=== PATIENT | female | born 1940 | race Caucasian/White ===

== ENCOUNTER 2018-10-01 09:48 | Inpatient (IN) ==
--- NOTE | 2018-10-01 10:46 | Diag Imaging Result Doc PS360 ---
CT HEAD W/O CONTRAST - 10/01/2018 INDICATION: stroke like symptoms COMPARISON: 01/01/2014 FINDINGS: There is no intracranial mass or hemorrhage. There is some mild patchy cerebral white matter lucency compatible with chronic microvascular disease. This is grossly stable from prior. The ventricles and sulci are normal. The sinuses are clear. IMPRESSION: No acute process. This exam was performed using automated exposure control, adjustment of mA or kV according to patient size, and/or use of iterative reconstruction technique Electronically signed by Max Panda 10/01/2018 10:44 AM
--- NOTE | 2018-10-01 10:59 | Diag Imaging Result Doc PS360 ---
EXAM: CHEST-PORTABLE INDICATION: stroke like symptoms TECHNIQUE: One view COMPARISON: 08/31/2018 FINDINGS: There is evidence of prior granulomatous disease, stable. The lungs are grossly clear. There is no discrete pleural fluid collection or pneumothorax. The cardiomediastinal silhouette and central vasculature are grossly unremarkable. IMPRESSION: No evidence of acute pathology by plain radiograph. Electronically signed by John Patton 10/01/2018 10:56 AM
[2018-10-01 11:30] LABS: BASO# 0.02 X1000 (0.0-0.2); BASO% 0.2 % (0.0-0.8); EOS# 0.14 X1000 (0.0-0.7); EOS% 1.7 % (0.0-10.0); HEMOGLOBIN 12.9 g/dL (12.0-16.0); IMM GRAN# 0.03 X1000 (0.0-0.04); IMM GRAN% 0.4 % (0.0-0.5); LYMPH# 1.96 X1000 (1.2-3.4); LYMPH% 23.9 % (20.5-51.1); MCH 26.6 PG (27-31); MCHC 32.3 g/dL (33-37); MCV 82.5 FL (81-99); MONO# 0.81 X1000 (0.11-0.59); MONO% 9.9 % (1.7-9.3); MPV 9.2 FL (7.4-10.4); NEUT# 5.23 X1000 (1.4-6.5); NEUT% 63.9 % (42.2-75.2); PLT 257 X1000 (130-400); RBC 4.85 XMIL (4.2-5.4); RDW 14.9 % (11.5-14.5); WBC 8.19 X1000 (4.8-10.8)
[2018-10-01 11:40] LABS: INR 0.87; PROTIME 12.6 Seconds (11.0-16.0)
[2018-10-01 11:41] LABS: PTT 24.8 Seconds (22.3-41.8)
[2018-10-01 11:47] LABS: ALB/GLOB RATIO 1.6; ALBUMIN 4.1 g/dL (3.5-5.0); CALCIUM 9.3 mg/dL (8.8-10.2); CREATININE 1.2 mg/dL (0.5-0.9); TOTAL BILIRUBIN 0.32 mg/dL (0.20-1.00); TOTAL PROTEIN 6.7 g/dL (6.3-8.3)
[2018-10-01] MEDS ORDERED: DIPHTHERIA/TETANUS ADULT IM ONE (12:44)
[2018-10-01] MEDS ORDERED: ZOFRAN IV PRN (16:42)
[2018-10-01] MEDS: NS 1,000 ML IV SCH (17:23)
[2018-10-01 18:41] LABS: URINE SOURCE CATH
[2018-10-01 18:50] LABS: BILIRUBIN URINE NEGATIVE (NEGATIVE); BLOOD URINE NEGATIVE (NEGATIVE); COLOR YELLOW; GLUCOSE URINE NEGATIVE (NEGATIVE); KETONE URINE NEGATIVE (NEGATIVE); LEUKOCYTES URINE NEGATIVE (NEGATIVE); NITRITE URINE NEGATIVE (NEGATIVE); PROTEIN URINE NEGATIVE (NEGATIVE); SP GRAVITY URINE 1.007; TURBIDITY URINE CLEAR (CLEAR); UR EPITHELIAL CELLS <10 /HPF (<10); URINE BACTERIA NEGATIVE /HPF; URINE RBC <10 /HPF (<10); URINE WBC <10 /HPF (<10); UROBILINOGEN URINE NORMAL (NORMAL)
[2018-10-01 19:14] LABS: UR AMPHETAMINES QUAL NONE DETECTED (NONE DETECT); UR BARBITUATES QUAL NONE DETECTED (NONE DETECT); UR BENZODIAZEPIN QUAL NONE DETECTED (NONE DETECT); UR CANNABINOIDS QUAL NONE DETECTED (NONE DETECT); UR COCAINE QUAL NONE DETECTED (NONE DETECT); UR METHADONE QUAL NONE DETECTED (NONE DETECT); UR OPIATES QUAL NONE DETECTED (NONE DETECT); UR OXYCODONE QUAL NONE DETECTED (NONE DETECT); UR PCP QUAL NONE DETECTED (NONE DETECT)
[2018-10-01] MEDS: VENTOLIN HFA INH SCH (19:18)
--- NOTE | 2018-10-01 20:05 | HISTORY AND PHYSICAL ---
PRIMARY CARE PHYSICIAN: Dr. Damon. CHIEF COMPLAINT: Dizziness and a fall, hitting her forehead. Also noted to have weakness in arms and legs and increased confusion. HISTORY OF PRESENTING ILLNESS: This is a 78-year-old female who presents to [facility] after she became dizzy and fell and hit her forehead with a small laceration above her right eyebrow. Family is at bedside and said that she has had increased confusion since Monday. They took her to see her primary care physician this morning and the patient did not recognize him. She has had a history of dementia, some weakness in her arms and legs. WORKUP: We did a CT of the head that showed no acute process. We did a chest x-ray that showed no evidence of acute pathology by plain radiograph. Laboratory data was fairly unremarkable. She did have a bump in her creatinine at 1.2, so she will be admitted for further evaluation and treatment. PAST MEDICAL HISTORY: Dementia, COPD, and right breast cancer. PAST SURGICAL HISTORY: Right mastectomy. FAMILY HISTORY: Reviewed and noncontributory. SOCIAL HISTORY: She currently lives alone. Denies any tobacco, alcohol or illicit drug use. ALLERGIES: To penicillin. HOME MEDICATIONS: We will need to obtain a current list of medications, reconcile, review and restart as appropriate. We will place an order for nursing to update and confirm home medications. LABORATORY DATA: Showed a white blood cell count of 8.19, hemoglobin 12.9, hematocrit 40, platelets 257,000. PT and INR of 12.6 and 0.87. Sodium 143, potassium 4, chloride 102, CO2 30, BUN of 7, creatinine 1.2, glucose 118. Troponin less than 0.010. IMAGING: CT of the head showed no acute process. Chest x-ray showed no evidence of acute pathology by plain radiograph. REVIEW OF SYSTEMS: She denied any fever, chills, blurred vision. She did admit to some dizziness and remembered her fall, but did not remember where it occurred or that she had a laceration to her right eyebrow. She has had increased confusion and weakness in her arms and legs. Denied any chest pain, coughing, shortness of breath. Denied any abdominal pain, constipation, diarrhea, burning or hurting with urination. PHYSICAL EXAMINATION: VITAL SIGNS: On arrival she had a temperature of 98.5 degrees, pulse 70, respirations 18, blood pressure 154/64, saturating 97% on room air. GENERAL: This is a 78-year-old female who is lying in the bed, answers most questions appropriately, but does have some lapse in memory and some confusion noted. HEENT: The patient is noted to have a small laceration above her right eyebrow with a Band-Aid in place. No bleeding or drainage noted at this time, otherwise normocephalic. Oropharynx and nares are clear. EYES: Pupils are equal, round, reactive to light and accommodation. Extraocular movements are intact. NECK: Normal inspection normal range of motion. LUNGS: Clear to auscultation bilaterally with equal lung expansion and chest wall movement. HEART: With regular rate and rhythm. No murmurs, rubs, or gallops. ABDOMEN: Soft, nontender, nondistended. Bowel sounds are present x4 quadrants. MUSCULOSKELETAL: She had 4/5 strength x4 extremities. NEUROLOGICAL: The cranial nerves 2-12 appear grossly intact. ASSESSMENT: 1. Fall with laceration to right eyebrow. 2. A mild acute kidney injury. 3. Dementia. PLAN: She was admitted to the medical unit, placed on telemetry, O2 per protocol. We will do an MRI of the brain with and without contrast and MRI today of the brain without contrast. We will check echocardiogram and a carotid ultrasound bilateral. We will place on sequential compression devices for deep vein thrombosis prophylaxis. We will update and confirm home medications. We will check a CBC, BMP and lipid profile. We will place on a healthy heart diet. We will consult physical therapy and further orders after seen by attending. Dictated by SAWYER Sevilla for Albert Pike MD cc: SAWYER Sevilla MD Dr. Frances
[2018-10-01] MEDS: LIORESAL PO SCH (21:29)
--- NOTE | 2018-10-01 21:31 | HISTORY AND PHYSICAL ---
ADDENDUM: Patient came in for altered mentation. Apparently Monday, she fell and has kind of been more confused since that time. Monday, she was kind of very agitated this morning. She woke up in she was planning to go to her daughter house for her birthday, but that will not happen for another week. The patient does have dementia. She is on Namenda at baseline, but her exam is really nonfocal. There may be just a trace of weakness on the right upper extremity, but besides that, she seems has a nonfocal exam. So at this point her altered mentation is possibly progression of her primary dementia. It certainly could be a cerebrovascular accident with acute changes in vascular dementia. We will rule that out. We need to do an urinalysis so we can get a sample to figure out if she has got an urinary tract infection because it does look like she has some degree of urinary retention and we will continue to monitor. DISPOSITION: Pending her clinical status. This is a [id number] encounter note with Yuliya Marcos. cc: Albert Pike MD
[2018-10-02] MEDS: NS 1,000 ML IV SCH (05:51)
[2018-10-02 07:03] LABS: BASO# 0.02 X1000 (0.0-0.2); BASO% 0.3 % (0.0-0.8); EOS# 0.21 X1000 (0.0-0.7); EOS% 2.9 % (0.0-10.0); HEMOGLOBIN 12.6 g/dL (12.0-16.0); IMM GRAN# 0.02 X1000 (0.0-0.04); IMM GRAN% 0.3 % (0.0-0.5); LYMPH# 1.42 X1000 (1.2-3.4); LYMPH% 19.6 % (20.5-51.1); MCH 26.8 PG (27-31); MCHC 32.3 g/dL (33-37); MCV 82.8 FL (81-99); MONO# 0.61 X1000 (0.11-0.59); MONO% 8.4 % (1.7-9.3); MPV 9.4 FL (7.4-10.4); NEUT# 4.95 X1000 (1.4-6.5); NEUT% 68.5 % (42.2-75.2); PLT 240 X1000 (130-400); RBC 4.71 XMIL (4.2-5.4); RDW 14.8 % (11.5-14.5); WBC 7.23 X1000 (4.8-10.8)
[2018-10-02 07:21] LABS: CALCIUM 8.8 mg/dL (8.8-10.2); CREATININE 1.1 mg/dL (0.5-0.9)
[2018-10-02] MEDS: VENTOLIN HFA INH SCH ×2 (07:55→19:00)
[2018-10-02] MEDS: NAMENDA XR PO SCH (10:10)
[2018-10-02] MEDS: MYRBETRIQ E.R. PO SCH (10:10)
[2018-10-02] MEDS: CELEXA PO SCH (10:10)
[2018-10-02] MEDS: LIORESAL PO SCH ×2 (10:11→20:02)
[2018-10-02] MEDS: SYNTHROID PO SCH (10:11)
--- NOTE | 2018-10-02 13:25 | Diag Imaging Result Doc PS360 ---
MRI BRAIN W/WO CONTRAST - 10/02/2018 INDICATION: stroke COMPARISON: Head CT 10/01/2018 FINDINGS: There is mild diffuse cerebral atrophy. There is no area of restricted diffusion. There is mild to moderate periventricular white matter chronic microvascular disease. No intracranial mass or hemorrhage. No abnormal contrast enhancement. Midline structures including optic chiasm and pituitary are normal. IMPRESSION: Chronic ischemic changes of the brain. No acute process. Electronically signed by Max Panda 10/02/2018 1:23 PM
--- NOTE | 2018-10-02 14:57 | ECHO REPORT ---
ORDER DATE: 10/01/2018 ECHOCARDIOGRAPHIC MEASUREMENTS: 1. Interventricular septum 1.2 2. Left ventricular posterior wall 0.9. 3. Diastolic diameter 4.1. 4. Left atrium 3. 5. Aorta 2.5 cm. SUMMARY OF THE 2-DIMENSIONAL IMAGIN. Technically suboptimal study. Poor acoustic window. 2. Aortic valve leaflets not well visualized. 3. Pulmonic valve not well visualized. 4. Mitral valve was normal. 5. Tricuspid valve was normal. Normal left ventricular cavity size. Estimated ejection fraction of 70%. Mild tricuspid regurgitation. Peak velocity across the tricuspid valve was 2.1 m/sec. 6. Peak velocity across the aortic valve less than 2 m/sec. By Doppler studies, there is no aortic stenosis or regurgitation. There is hyperdynamic circulation. 7. There is mild mitral regurgitation. 8. Mild left ventricular hypertrophy. 9. Peak velocity across the aortic valve was less than 2 m/sec. There is no aortic stenosis. There is mild aortic regurgitation. 10. There is no pericardial effusion or obvious intracardiac mass or thrombus. cc: MD Yuliya Hendrickson CRNP
[2018-10-02 17:49] LABS: ALB/GLOB RATIO 1.3; ALBUMIN 3.9 g/dL (3.5-5.0); CALCIUM 9.1 mg/dL (8.8-10.2); CREATININE 1.2 mg/dL (0.5-0.9); POTASSIUM 3.4 mmol/L (3.5-5.1); TOTAL BILIRUBIN 0.2 mg/dL (0.20-1.00); TOTAL PROTEIN 6.9 g/dL (6.3-8.3)
--- NOTE | 2018-10-02 18:03 | PROGRESS NOTE ---
DATE: 10/02/2018 SUBJECTIVE: The patient has no major complaints. OBJECTIVE: vital signs: Blood pressure 157/83, heart rate 70, respiratory rate 18, temperature 98.2 degrees. Cardiovascular: Regular rate and rhythm. Pulmonary: Bilateral breath sounds. Clear to auscultation. Gastrointestinal: Soft, nontender, nondistended. Bowel sounds are positive. LABORATORY DATA: White count 7, hemoglobin and hematocrit 12 and 39, platelets of 240,000. Creatinine 1.1. LDL was 156. PROBLEM LIST: 1. Transient ischemic attack versus possible cerebrovascular accident. We will continue treatment. MRI was negative. There is no real evidence of worsening function. I am not sure what happened. It certainly could have been transient ischemic attack or just progression of her dementia. Family is concerned that she is unable to get up and around by herself and they feel like she almost fell last night again, but feel her mental status has gone back to baseline. So we will continue to monitor for the time being. 1. Acute kidney injury. We will continue gentle hydration and follow. 2. Dementia. Appears to be relatively well controlled. We may have to make adjustments. We will see how she is doing. cc: Albert Pike MD
[2018-10-02] MEDS: TYLENOL PO PRN (20:02)
[2018-10-03] MEDS: NS 1,000 ML IV SCH (01:16)
[2018-10-03 07:19] LABS: BASO# 0.01 X1000 (0.0-0.2); BASO% 0.1 % (0.0-0.8); EOS# 0.27 X1000 (0.0-0.7); EOS% 3.7 % (0.0-10.0); HEMATOCRIT 40.4 % (37.0-47.0); HEMOGLOBIN 12.9 g/dL (12.0-16.0); IMM GRAN# 0.03 X1000 (0.0-0.04); IMM GRAN% 0.4 % (0.0-0.5); LYMPH# 1.88 X1000 (1.2-3.4); LYMPH% 25.6 % (20.5-51.1); MCH 26.6 PG (27-31); MCHC 31.9 g/dL (33-37); MCV 83.3 FL (81-99); MONO# 0.66 X1000 (0.11-0.59); MPV 9.6 FL (7.4-10.4); NEUT# 4.48 X1000 (1.4-6.5); NEUT% 61.2 % (42.2-75.2); PLT 251 X1000 (130-400); RBC 4.85 XMIL (4.2-5.4); RDW 14.8 % (11.5-14.5); WBC 7.33 X1000 (4.8-10.8)
[2018-10-03] MEDS: VENTOLIN HFA INH SCH ×2 (07:33→19:37)
[2018-10-03 07:48] LABS: TSH 0.58 uIUmL (0.27-4.20)
[2018-10-03] MEDS: MYRBETRIQ E.R. PO SCH (10:07)
[2018-10-03] MEDS: LIORESAL PO SCH ×2 (10:07→21:10)
[2018-10-03] MEDS: ASPIRIN EC PO SCH (10:07)
[2018-10-03] MEDS: SYNTHROID PO SCH (10:07)
[2018-10-03] MEDS: CELEXA PO SCH (10:08)
[2018-10-03] MEDS: NAMENDA XR PO SCH (10:08)
--- NOTE | 2018-10-03 18:41 | PROGRESS NOTE ---
DATE: 10/03/2018 SUBJECTIVE: She has no major complaints. She wants to go home. She does not want to have any issues with her family. OBJECTIVE: Vital Signs: Blood pressure is 136/58, heart rate 70, respiratory rate 20, temperature 98, 98% on room air. Cardiovascular: Regular rate and rhythm. Pulmonary: Bilateral breath sounds. Clear to auscultation. GI: Soft, nontender, nondistended. Bowel sounds are positive. LABORATORY DATA: White count 7, hemoglobin and hematocrit 12 and 40, platelets 251. Basic was normal. PROBLEM LIST: 1. Possible transient ischemic attack versus symptomatic carotid stenosis. Preliminarily, I believe her carotid showed blockage on the left of about 60% to 70%. I think there were some issues there. I am going to get a vascular surgery opinion on that. 2. Dementia. She is pretty well controlled on her current medications. We will continue to monitor. 3. Disposition. I anticipate she may be able to be discharged soon. I am going to check her lipids. We need to probably be a little bit more vigorous in her anti-platelet, although her LDL direct is 156. She needs to be on a decent dose of statin, which she is not, so I am going to start Lipitor 40. She needs to be on at least aspirin and possibly combination anti- platelet therapy, but I will make a note to consult Dr. Malloy for evaluation therein. PLAN: The plan will be to go to rehab tomorrow once she is stabilized. cc: Albert Pike MD
[2018-10-03] MEDS ORDERED: LIPITOR PO SCH (21:00)
[2018-10-03] MEDS: TYLENOL PO PRN (21:12)
--- NOTE | 2018-10-03 21:37 | GENERAL SURGERY CONSULTATION ---
DATE: 10/03/2018 HISTORY OF PRESENT ILLNESS: This is a 78-year-old female with history of dementia but otherwise functioning pretty well. She had a fall at home in the emergency room where she was found to have some abrasions and lacerations and confusion. Her family says this is uncharacteristic even for her baseline dementia. She has had some previous falls in the past, but apparently no witnessed focal neurologic deficits. She was unable recognize people who she knew well. MRI of the brain showed chronic changes as well as CT scan but no acute findings. Carotid ultrasound did demonstrate elevation of velocities in the right internal carotid artery. The formal report is pending. She does take a baby aspirin but does not take any statin medications. Has had no prior CVA and no definitive focal neurologic deficits. MEDICAL HISTORY: Dementia, COPD and a history of right breast carcinoma treated approximately 10 years ago. SURGICAL HISTORY: Right mastectomy. She has also had some orthopedic procedures. SOCIAL HISTORY: She lives alone. No alcohol. No drugs. Her was a heavy smoker, and she does have some secondhand exposure. FAMILY HISTORY: Reviewed and noncontributory. REVIEW OF SYSTEMS: Ten-point negative. No fever. PHYSICAL EXAMINATION: Vital signs: Pulse 78, blood pressure 171/69, oxygen saturation 100%. General: She is alert, elderly appearing but no acute distress. HEENT: No scleral icterus. No cervical mass. Cardiovascular: Normal rate. Pulmonary: No increased work of breathing. Abdomen: Soft, nontender, nondistended. Integument: Warm and dry. Right chest exam shows post mastectomy with no subcutaneous masses. Lymphatic: No cervical, axillary, or inguinal adenopathy. Neurologic: Cranial nerves 2 through 12 are grossly intact. Strength 5/5 in all extremities. Sensation is grossly normal. Psychiatric: Appropriate affect. She does repeat questions at times. LABORATORY DATA: White count is 3, hematocrit is 40. Urinalysis was clear. Her troponins are negative. TSH is 0.58. UDS is clear. IMAGING: I have reviewed her CT scan of the head, her brain MRI, her carotid velocities, although I have not yet seen her duplex images and her echocardiogram report. ASSESSMENT AND PLAN: This is a 78-year-old female with possible transient ischemic attack symptoms, although the symptoms are vague, mostly a small. Elevation of velocities final degree of stenosis is pending at this juncture. I would recommend treating her medically, allow her to recover from this episode. We would recommend initiation of a statin. She is on aspirin and would consider dual antiplatelet therapy. We will follow her along. She may ultimately benefit from endarterectomy, especially if she has recurrent episodes with focal neurologic findings. cc: Gui Malloy MD
[2018-10-04] MEDS: TYLENOL PO PRN (04:54)
[2018-10-04 08:08] VITALS: BP 182/82
[2018-10-04] MEDS: VENTOLIN HFA INH SCH (08:21)
[2018-10-04] MEDS ORDERED: PLAVIX PO SCH (09:00)
[2018-10-04] MEDS: NAMENDA XR PO SCH (09:28)
[2018-10-04] MEDS: ASPIRIN EC PO SCH (09:28)
[2018-10-04] MEDS: MYRBETRIQ E.R. PO SCH (09:28)
[2018-10-04] MEDS: SYNTHROID PO SCH (09:28)
[2018-10-04] MEDS: CELEXA PO SCH (09:29)
[2018-10-04] MEDS: LIORESAL PO SCH (09:29)
--- NOTE | 2018-10-04 09:39 | DISCHARGE SUMMARY ---
ADMISSION DATE: 10/01/2018 DISCHARGE DATE: 10/04/2018 PRIMARY CARE PHYSICIAN: Dr. Roverto Damon. ADMISSION DIAGNOSES: 1. Fall with laceration to right eyebrow. 2. Mild acute kidney injury. 3. Dementia. DISCHARGE DIAGNOSES: 1. Possible transient ischemic attack versus symptomatic carotid stenosis. 2. Dementia. SUMMARY OF FINDINGS: This is a 78-year-old female who presented to the emergency room after she had become dizzy and fell and hit her forehead with a small laceration above her right eyebrow. The family at the bedside said she had increased confusion that began the previous Monday, saw her primary care physician on the morning of arrival, and did not recognize him. Has a history of dementia and some weakness in her arms and legs. Was admitted. We obtained an MRI of the brain that showed chronic ischemic changes of the brain, but no acute process. We did carotid velocities that showed elevation in the right internal carotid artery. Formal report remains pending. We consulted General Surgery, who evaluated and felt the elevation of the velocities final degree was pending, but would recommend treating her medically, allow her to recover from this episode, recommend initiation of statin, which she has been placed on, and on aspirin and Plavix 75 mg p.o. daily. They would follow along. As she had recurrent episodes with focal neurological findings, she may ultimately benefit from an endarterectomy at that time, but it is now felt that she can safely be discharged to rehab. Family did request to see Neurology, and we have set that up for her to be seen prior to being discharged today. DISCHARGE MEDICATIONS: Aspirin 81 mg p.o. daily, ProAir inhalation b.i.d., atorvastatin 40 mg p.o. at bedtime, baclofen 20 mg p.o. b.i.d., citalopram 20 mg p.o. daily, Plavix 75 mg p.o. daily, Synthroid 88 mcg p.o. daily, memantine 28 mg p.o. daily, Myrbetriq 50 mg p.o. daily, Symbicort 80/4.5 inhalation b.i.d., lisinopril 5 mg p.o. daily, Claritin 10 mg p.o. daily. FOLLOWUP: She will follow up with her primary care physician once she has completed her rehab stay. TIME SPENT: A 35-minute discharge. This is SAWYER Fields, dictating for Dr. Pike. Dictated by SAWYER Sevilla for Albert Pike MD cc: SAWYER Sevilla MD David Francis, MD
--- NOTE | 2018-10-04 14:12 | CONSULTATION ---
DATE OF CONSULTATION: 10/04/2018 HISTORY: Ms. Armendariz is 78 years old, and there is reported to be long-standing dementia. History from the patient is considered not completely valid on that basis. Attentive daughter in-law at the bedside and review of the hospital notes provided history. She had been forgetful for at least 3 years, gradually more prominent. She fell and struck her head 3 days ago, and was briefly more confused, but seems back to baseline now. She has been taking memantine for a few years. Exdpjfrl-um-xii does not know all of her medicines in detail, and qjpugbae-fp-[id number] does not know if she had previous cholinesterase inhibitor trial. There is not cholinesterase inhibitor on her home medicine list now. There is no history of other head injury. She has never had clinical stroke. Brain MRI this admission showed nothing remarkable. She has never used ethanol. She has never had seizure or other neurologic event. There is reported family history of dementia in her mother. Workup here includes lab showing some minor findings on chemistry profile but nothing that would be associated with encephalopathy. There is carotid report pending with preliminary report that velocity data is consistent with stenosis on the right. She has been afebrile here. Systolic blood pressures have ranged 130s-180s. There is reported past history of hypertension treated with lisinopril. PHYSICAL EXAMINATION: On exam, Ms. Armendariz is awake, alert, and attentive. She missed the date by just one day, and otherwise was completely oriented to all parameters. Speech is not dysarthric. Language function is intact on bedside testing. She scored 23/30 on cognitive testing. She registered 2 of 3 items consistently. She consistently could recall none of 3 items. She named the president, but could not name the Governor. She reported recent news but could not provide details. She interpreted a simile, but not a metaphor. She made a careless mistake spelling "world" backward. Head and neck are unremarkable. Visual delgadillo are full tested grossly by confrontational finger counting. Extraocular movements are full. Facial motility is little bit diminished bilaterally, but symmetric. Gag is intact. Tongue is midline. She splints the right shoulder. Left shoulder shrug is good. Strength is normal in the arms and legs. Limb tone is symmetric. Plantar response is silent bilaterally. I did not test her gait. She reports good pinprick appreciation over the limbs. Reflexes are trace at the ankles and 1+ at the wrists bilaterally. During interview and examination, she had some fidgeting and squirming involving trunk and all limbs and [id number] reports this has been present for decades. IMPRESSION: 1. Cognitive impairment, probably dementia/major neurocognitive disorder. If she has not had previous cholinesterase inhibitor trial, I would consider that electively, not urgent. I discussed potential adverse cholinergic side effects of cholinesterase inhibitors with the patient and [id number]. 2. Recent fall with head injury. There is not clinical or imaging evidence of intracranial bleeding or brain injury. I encouraged her to be careful with gait and activities. 3. Movement. Features are not typical of chorea and there is not history of dopamine dorothy medication use. This does not need attention now. 4. Question of carotid stenosis. I don't think this is symptomatic. Await full report. I will be glad to see her again if needed. Thanks for asking Neurology to see Ms. Armendariz. cc: MD MYAH iFore III
--- NOTE | 2018-10-05 10:22 | DISCHARGE SUMMARY ---
ADMISSION DATE: 10/01/2018 DISCHARGE DATE: 10/04/2018 Patient came in with a fall, and she was found to have possibly a dementia episode. She also was found to have carotid stenosis. We initiated aspirin and Plavix. On the day of discharge, she is actually doing pretty well. We also started Lipitor. She seems to be doing well. Her LDL is actually somewhat elevated at a level of 156. The patient will be discharged. Follow up with Surgery for evaluation of her carotid stenosis. Dr. Ji was also consulted, and he did recommend Aricept versus Namenda, and either aspirin or Plavix long-term at this point until she gets her vascular surgery. We will continue aspirin and Plavix, and continue to follow. This is a vpxx-ut-dyci encounter note with SAWYER Sevilla. cc: Albert Pike MD
--- NOTE | 2018-10-05 18:36 | Carotid Study ---
DATE: 10/01/2018 REFERRING PHYSICIAN: Shahzad. INTERPRETING PHYSICIAN: Jason. HIDE SPREADER: Nancy. The patient has had a CVA. Imaging is accomplished. Velocities are noted. There is plaque in the right bulb and the proximal left internal carotid. The right internal common carotid artery shows 2.7; left is 0.9. Percent stenosis is 60% to 797% on the right, and 0% to 39% on the left. Plaque disease as noted above. The velocities in the right internal have increased substantially since the study of 01/15/2014, and now represent a stenosis of hemodynamic consequence. There is antegrade vertebral flow bilaterally. cc: MD Yuliya Reyes CRNP
== END 2018-10-04 15:21 | DRG 68 ==
LOC: ED 09:48 → 3N 14:53
PROVIDERS: ATTEND Internal Medicine
CPT/HCPCS: 70450; 70553; 71010; 71045; 80048; 80053; 80061; 80101; 80301; 80307; 80324; 80345; 80346; 80353; 80358; 80361; 80365; 81001; 82607; 82746; 82948; 83721; 83992; 84443; 84484; 85025; 85610; 85730; 86038; 86039; 86140; 86592; 90471; 90714; 93005; 93306; 93880; 94640; 94761; 97162; 97530; 99285; A9270; A9579; G0431; G0434; G0479; G0480; J7030; XXXXX

== ENCOUNTER 2018-11-16 21:20 | Observation (INO) ==
--- NOTE | 2018-11-16 21:49 | EKG Report ---
Test Performed on : 11/16/2018 9:31:42 PM Test Reason : cp Blood Pressure : / mmHG Vent. Rate : 063 BPM Atrial Rate : 063 BPM P-R Int : 172 ms QRS Dur : 078 ms QT Int : 408 ms P-R-T Axes : 049 053 084 degrees QTc Int : 417 ms Normal sinus rhythm. Normal ECG When compared with ECG of 24-OCT-2018 11:11, (Unconfirmed) No significant change was found Unconfirmed Result
[2018-11-16] MEDS ORDERED: ASPIRIN PO ONE (22:17)
[2018-11-16 22:37] LABS: BASO# 0.06 X1000 (0.0-0.2); BASO% 0.6 % (0.0-0.8); EOS# 0.37 X1000 (0.0-0.7); EOS% 3.5 % (0.0-10.0); HEMATOCRIT 38.4 % (37.0-47.0); HEMOGLOBIN 12.6 g/dL (12.0-16.0); IMM GRAN# 0.06 X1000 (0.0-0.04); IMM GRAN% 0.6 % (0.0-0.5); LYMPH# 2.33 X1000 (1.2-3.4); LYMPH% 22.3 % (20.5-51.1); MCH 26.9 PG (27-31); MCHC 32.8 g/dL (33-37); MCV 82.1 FL (81-99); MONO# 1.48 X1000 (0.11-0.59); MONO% 14.1 % (1.7-9.3); MPV 8.8 FL (7.4-10.4); NEUT# 6.16 X1000 (1.4-6.5); NEUT% 58.9 % (42.2-75.2); PLT 329 X1000 (130-400); RBC 4.68 XMIL (4.2-5.4); RDW 15.2 % (11.5-14.5); WBC 10.46 X1000 (4.8-10.8)
[2018-11-16 23:18] LABS: ALB/GLOB RATIO 1.5; ALBUMIN 4.1 g/dL (3.5-5.0); CALCIUM 8.6 mg/dL (8.8-10.2); POTASSIUM 4.7 mmol/L (3.5-5.1); TOTAL BILIRUBIN 0.2 mg/dL (0.20-1.00); TOTAL PROTEIN 6.9 g/dL (6.3-8.3)
--- NOTE | 2018-11-17 00:32 | PROVIDER DOCUMENTATION ---
This chart was entered by Joselin Patton Scribe, acting as scribe for Zofia Murphy MD. HPI-Chest Pain - General Chief Complaint: Chest Pain Stated Complaint: cp Time Seen by Provider: 11/16/18 22:15 Source: patient, family Allergies/Adverse Reactions: Patient Allergies Allergy/AdvReac Type Severity Reaction Status Date / Time Penicillins Allergy Unknown Verified 10/24/18 11:45 prednisone Allergy Unknown Verified 10/24/18 11:46 pseudoephedrine Allergy Unknown Verified 10/24/18 11:46 Sulfa (Sulfonamide Allergy Unknown Verified 10/24/18 11:46 Antibiotics) histex Allergy Unknown Uncoded 10/24/18 11:46 Home Medications: Home Medication List Medication Instructions Recorded Confirmed Last Taken Type Albuterol Sulfate [Proair Hfa] 8.5 gm INHALATION 4XDAY PRN PRN 10/01/18 10/24/18 09/30/18 History Baclofen 20 mg PO 4XDAY PRN PRN 10/01/18 10/24/18 09/30/18 History Budesonide/Formoterol Fumarate 1 dose INH BID 10/01/18 10/24/18 10/24/18 History [Symbicort 80-4.5 Mcg Inhaler] Citalopram [Celexa] 20 mg PO DAILY 10/01/18 10/24/18 10/24/18 History LISINOpril [Prinivil] 5 mg PO DAILY 10/01/18 10/24/18 10/24/18 History Levothyroxine [Synthroid] 88 microgm PO DAILY 10/01/18 10/24/18 10/24/18 History Loratadine [Claritin] 10 mg PO DAILY 10/01/18 10/24/18 10/24/18 History Memantine HCl [Namenda Xr] 28 mg PO DAILY 10/01/18 10/24/18 10/24/18 History Mirabegron [Myrbetriq] 50 mg PO DAILY 10/01/18 10/24/18 10/24/18 History ATORVAstatin [Lipitor] 40 mg PO QHS tab 10/03/18 10/24/18 10/23/18 Rx Aspirin EC 81 mg PO DAILY tab 10/03/18 10/24/18 10/24/18 Rx Clopidogrel [Plavix] 75 mg PO QHS 10/24/18 10/24/18 10/23/18 History Donepezil HCl 1 tab PO DAILY 10/24/18 10/24/18 10/24/18 History Fluticasone 50 Mcg Nasal [place] 2 spr INH DAILY 10/24/18 10/24/18 10/24/18 History [Flonase] Montelukast [Singulair] 1 tab PO DAILY 10/24/18 10/24/18 10/24/18 History Prednisolone Acetate [Pred Forte] 1 drp OPH DIRECTED 10/24/18 10/24/18 Unknown History Trazodone HCl 1 tab PO QHS 10/24/18 10/24/18 10/23/18 History - History of Present Illness-CP Nature of Presenting Problem: 78 yowf presents w/daughter to er w/cc 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 pt was sitting on couch when cp started. daughter sts pt was complaining of feeling cold and then began to have intermittent episodes of substernal chest pain. States the episodes last 15-30 minutes and the resolve. Pain pressure like and with this she feels diaphoretic and short of breath. On arrival to the ED pt without any symptoms. Was recently discharged from [facility] after an admission for new onset seizures and at that time was found to have 65% carotid stenosis. Has not had any prior [place] or cardiac evaluation. Location: reports: substernal Chest Pain Radiation: reports: no radiation Quality of Pain: reports: tightness Severity in ED: mild Onset/Duration: just prior to arrival Timing: intermittent Context/Activities at Onset: reports: none Modifying Factors: improves with: nothing Associated Symptoms: reports: fever/chills. denies: dizziness, nausea, vomiting Prior Chest Pain/Cardiac Workup: reports: no prior cardiac workup Review of Systems - Adult - REVIEW OF SYSTEMS - ADULT Constitutional: reports: see HPI, chills. denies: fever, fatique, night sweats Eyes: reports: no symptoms reported Ears, Nose, Mouth & Throat: reports: no symptoms reported Cardiovascular: reports: see HPI, chest pain. denies: heart murmur, irregular heart rate, orthopnea Respiratory: reports: see HPI, shortness of breath. denies: cough, pleurisy, wheezing Gastrointestinal: reports: no symptoms reported. denies: diarrhea, nausea, vomiting Genitourinary: reports: no symptoms reported Musculoskeletal: reports: no symptoms reported Integumentary: reports: no symptoms reported Neurological: reports: no symptoms reported. denies: dizziness/vertigo, loss of balance, syncope Psychiatric: reports: no symptoms reported Endocrine: reports: no symptoms reported Hematologic/Lymphatic: reports: no symptoms reported Allergic/Immunologic: reports: no symptoms reported All Other Systems: Reviewed and Negative Past History - Adult - PAST MEDICAL HISTORY-ADULT Review of Records: reports: Old Records Reviewed, Nursing Assessment Review, Medications Reviewed, Social history reviewed & non-contributory. Major Childhood Illnesses: reports: denies history Cardiovascular: reports: HTN, hyperlipidemia Respiratory: reports: denies history Gastrointestinal: reports: GERD Obstetrical/Gynecological: reports: denies history Genitourinary: reports: kidney disease Musculoskeletal: reports: denies history Neurological: reports: CVA, Seizures/Epilepsy Psychiatric: reports: depression Endocrine/Immune: reports: denies history Other Conditions: reports: denies history - PRIOR SURGERIES/PROCEDURES Surgical/Procedure History: reports: hysterectomy, breast, other - IMMUNIZATION STATUS Childhood Immunizations: See Nurse Assessment Flu Vaccine: See Nurse Assessment - FAMILY HISTORY Family History: reviewed, not pertinent - SOCIAL HISTORY Smoking: non-smoker Substance Use: none/never Physical Exam-General - PHYSICAL EXAM-ADULT Initial Vital Signs Reviewed: Yes - CONSTITUTIONAL General Appearance: appears well, alert, no apparent distress. negative: lethargic, slow to respond, obtunded - EYES Eyes: PERRL/EOMI, pink conjunctivae - HEAD, EARS, NOSE, MOUTH & THROAT HENMT: normocephalic/atraumatic, moist mucous membranes, normal ENT inspection - NECK Neck: non-tender, full range of motion, supple, normal inspection - RESPIRATORY Respiratory: lungs clear, normal breath sounds, no pleuratic chest pain, no respiratory distress, no accessory muscle use. negative: chest non-tender, respiratory distress, decreased breath sounds, accessory muscle use - CARDIOVASCULAR Cardiovascular: normal peripheral pulses, regular rate, rhythm, no edema, no gallop, no JVD, no murmur. negative: JVD, bradycardia, tachycardia - CHEST (BREASTS) Chest/Breast: tenderness (substernal to palp). negative: deferred, no tenderness, nipple discharge - GASTROINTESTINAL (ABDOMEN) Abdominal Exam: normal bowel sounds, non tender, soft - LYMPHATIC Lymphatic: no adenopathy - MUSCULOSKELETAL Back Exam: normal inspection, no CVA tenderness, no vertebral tenderness Extremity: normal range of motion, non-tender, normal inspection Peripheral Pulses: radial (R): 2+, radial (L): 2+ - SKIN Integumentary: normal color, normal turgor, warm/dry, other (large bruise left forearm from fall in rehab 2-3wks ago). negative: embolic lesions, erythema, rash, swelling - NEUROLOGIC Neurologic: grossly normal, no motor/sensory deficits - PSYCHIATRIC Psych/Mental Status: normal mood/affect, normal thought content, normal thought process, oriented x 3 - HEART Score HEART Score: History: Highly Suspicious HEART Score: ECG: Normal HEART Score: Age: > or = 65 Years HEART Score: Risk Factors for Atherosclerotic Disease: > or = 3 Risk Factors or History of Atherosclerotic Disease HEART Score: Troponin: < or = Normal Limit Total HEART Score:: 6 Progress - PLAN OF CARE/RESULTS Progress/Plan/Lab Results: Vital Signs - 8 hr 11/16/18 21:35 Temperature 98.8 F Pulse Rate 65 Respiratory Rate 22 Blood Pressure 151/84 O2 Sat by Pulse Oximetry 98 Laboratory Results - last 24 hr 11/16/18 11/16/18 11/16/18 22:10 22:10 22:10 WBC 10.46 RBC 4.68 Hgb 12.6 Hct 38.4 MCV 82.1 MCH 26.9 L MCHC 32.8 L RDW Std Deviation 15.2 H Plt Count 329 MPV 8.8 Immature Gran % (Auto) 0.6 H Neut % (Auto) 58.9 Lymph % (Auto) 22.3 [place] % (Auto) 14.1 H Eos % (Auto) 3.5 Baso % (Auto) 0.6 Immature Gran # (Auto) 0.06 H Neut # (Auto) 6.16 Lymph # (Auto) 2.33 [place] # (Auto) 1.48 H Eos # (Auto) 0.37 Baso # (Auto) 0.06 Sodium 136 Potassium 4.7 Chloride 98 Carbon Dioxide 24 L Anion Gap 14 BUN 12 Creatinine 1.0 H Estimated GFR/1.73 m2 53 BUN/Creatinine Ratio 12 Glucose 110 H Calculated Osmolality 272 Calcium 8.6 L Total Bilirubin 0.20 AST 19 ALT 17 Alkaline Phosphatase 114 H Troponin T < 0.010 Total Protein 6.9 Albumin 4.1 Globulin 2.8 Albumin/Globulin Ratio 1.5 Lipase 55 Orders Category Date Time Status IV Insertion ORDERED Care 11/16/18 22:17 Completed Update & Confirm Home Medicati ROUTINE Care 11/17/18 00:21 Active CHEST-1 VIEW [RAD] Stat Exams 11/16/18 22:17 Taken CBC WITH DIFF [HEME] Stat Lab 11/16/18 22:10 Completed COMPREHENSIVE METABOLIC PANEL [CHEM] Stat Lab 11/16/18 22:10 Completed LIPASE [CHEM] Stat Lab 11/16/18 22:10 Completed TROPONIN T Stat Lab 11/16/18 22:10 Completed Aspirin Med 11/16/18 22:17 Discontinued 325 mg PO NOW ONE Nitroglycerin Med 11/17/18 00:30 Ordered 0.5 inch TOP Q6H EKG [EKG] Stat Ther 11/16/18 21:24 Draft chest pain will further evaluate for causes including but not limited to ACS, arrythmia, pe, ptx, pna, Result Diagrams: 11/16/18 22:10 11/16/18 22:10 - REASSESSMENT Reassessment #2 Status: improving (feeling well, no chest pain will in the ED. ED work up unremarkable but presenation concerning for ACS. Will admit for further evaluation and treatment. Discussed case with Dr. Rawls, hosptialist who will see and admit pt.) - EKG 1 Time of EKG reading by physician:: 21:31 EKG Read and Signed by:: Zofia Murphy EKG Interpretation (*Must complete 3 of following elements*): Normal Rate: 63 Rhythm: NSR [place]: normal QRS: normal DC Interval: normal ST Wave: normal Departure - Departure Date of Disposition Decision: 11/17/18 Time of Disposition Decision: 00:31 DIAGNOSIS: Chest pain Qualifiers: Chest pain type: unspecified Qualified Code(s): R07.9 - Chest pain, unspecified Disposition: ADMITTED INPATIENT 09 Certified Medical Emergency: Emergent Condition: Good - Critical Care Note This patient required my direct & personal management of CC.: No Attestation - Physician/ LENA Attestation Patient care was provided by Advanced Practice Provider:: No The physician spent face to face time with patient:: Yes Advanced Practice Provider documentation review:: Supervising physician onsite and consulted in the evaluation and care of this patient. The physician did have a face to face encounter with the patient. This chart was documented by the indicated scribe, (Joselin Patton, Brijesh) and accurately reflects the services I performed and decisions made by me, Zofia Murphy MD, as attested by the provider's signature.
[2018-11-17] MEDS: NITROGLYCERIN TOP SCH ×3 (00:42→12:36)
[2018-11-17] MEDS ORDERED: ZOFRAN IV PRN (02:13)
[2018-11-17] MEDS ORDERED: TYLENOL PO PRN (02:13)
[2018-11-17] MEDS ORDERED: LOVENOX SUBQ SCH (02:13)
--- NOTE | 2018-11-17 06:51 | HISTORY AND PHYSICAL ---
CHIEF COMPLAINT: Chest pain. HISTORY OF PRESENT ILLNESS: Ms. Armendariz is a 78-year-old female with a history of mild dementia, recent seizure disorders, she was found to have a 65% carotid stenosis at that time, hypertension, hyperlipidemia, GERD and TIA who comes in tonight after having chest pain that lasted around 30 minutes. She said that it was substernal into her left chest with mild shortness of breath. She apparently felt very cold, said it was a pressure. Again, it stopped around 15-30 minutes after it began. She did not take any aspirin or nitroglycerin. She came into the emergency room to be evaluated. She was apparently recently discharged from [facility] to have her seizures worked up. They started abruptly after having a fall which she hit her head in. From what I understand, she was started on a couple of seizure medications. She went to [facility] for around 2 weeks and today was her first day home from rehab. At any rate, laboratory data to this point is grossly normal. Patient's chest pain has subsided. The EKG is normal sinus rhythm. She will be admitted for further evaluation and treatment. PAST MEDICAL HISTORY: See HPI. Breast cancer. PREVIOUS SURGICAL HISTORY: 1. Right mastectomy. 2. Hysterectomy. SOCIAL HISTORY: Lives with daughter. No tobacco, alcohol or illicit drugs. FAMILY HISTORY: Hypertension in first degree relatives. Denies other family history. ALLERGIES: Penicillin, prednisone, pseudoephedrine, Histex and sulfa antibiotics. HOME MEDICATIONS: A list of home medications has not been reconciled. Order was placed for nursing to confirm home medications. I do believe that she takes Synthroid 88 mcg, Donepezil 10 mg, Plavix 75, atorvastatin 40 mg and aspirin 81 mg. This may not be an all inclusive list. I am unsure what seizure medication she takes at this point. REVIEW OF SYSTEMS: Fourteen point review of systems conducted with the patient. She had no complaints at this time. Pertinent positives are listed above in the HPI. All other systems reviewed and found to be negative. PHYSICAL EXAMINATION: VITAL SIGNS: Temperature 98.8 degrees, pulse 65, respirations 18, blood pressure 160/100, oxygen saturation 98% on room air. GENERAL: Pleasant 78-year-old female alert and oriented x3. Has intermittent confusion with some facts but is able to answer most questions reliably. Daughter is at bedside. Patient is in no acute distress. HEENT: Head is atraumatic, normocephalic. Pupils are equal, round, reactive to light. Extraocular eye movements intact. Sclerae anicteric. Conjunctivae pink. Oral mucosa is moist. NECK: Supple. No JVD. No thyromegaly. Trachea is midline. No cervical lymphadenopathy. CARDIAC: S1 and S2 appreciated. No murmurs, gallops, rubs. LUNGS: Clear to auscultation bilaterally. No rhonchi, wheezes, rales. Symmetric rise and fall of respirations. ABDOMEN: Protuberant, soft, nondistended, nontender. Bowel sounds present in all 4 quadrants. Normoactive. No pulsatile masses nor organomegaly. EXTREMITIES: No cyanosis, clubbing or edema. 2+ pedal pulses bilaterally. GENITOURINARY: No bladder distention. The patient voids. Otherwise deferred. NEUROLOGICAL: Alert and oriented x3, intermittent lapses in memory or mild confusion. Cranial nerves 2-12 appear to be grossly intact. INTEGUMENTARY: Warm, dry and intact. No acute lesions or rash. A large area of ecchymosis noted on right upper arm from a previous fall. DIAGNOSTIC DATA: EKG shows normal sinus rhythm. Chest x-ray: No effusions, no infiltrates. LABORATORY DATA: CBC within normal limits. BUN 12, creatinine 1, glucose 110. Troponin less than 0.010. ASSESSMENT AND PLAN: 1. Chest pain. Rule out acute myocardial infarction. We will give nitroglycerin 0.5 inch topically q.6 hours. 325 aspirin was given in the emergency room. We will continue Plavix and 81 mg aspirin as well as atorvastatin. Consult Cardiology. Stress test tomorrow morning. 2. Mild dementia, aware. We will continue home medications once they have been reconciled. 3. Seizure disorder, aware. Again, we will continue home medications once they have been reconciled. 4. Hypothyroidism. Continue Synthroid. 5. Hypertension. Nitroglycerin. We will continue any home medications that the patient takes regarding this. 6. Hyperlipidemia. Continue atorvastatin. Check a lipid profile. Further recommendations per the patient's clinical course. Dictated by SAWYER More for Jimmie Rawls MD cc: SAWYER More MD
[2018-11-17] MEDS ORDERED: PRILOSEC PO SCH (07:00)
[2018-11-17] MEDS ORDERED: SYNTHROID PO SCH (07:00)
--- NOTE | 2018-11-17 07:58 | HISTORY AND PHYSICAL ---
ADDENDUM REPORT CHIEF COMPLAINT: Chest pain. The patient seen and examined by myself. Full note dictated and discussed with nurse practitioner. Patient was actually just in the hospital for different reasons. She apparently had a prolonged seizures and was transferred to [place]. Medications were adjusted. She was then transferred to rehab, in fact, just get out of rehab today. However upon getting home, started having chest pain and therefore the daughter brought her to the ER. At this point, her pain seems a little bit better, although patient does have dementia and therefore her history is quite difficult. I am going to admit her to the hospital, rule out PR and will follow. cc: Jimmie Rawls MD
[2018-11-17 08:12] LABS: CALCIUM 9.2 mg/dL (8.8-10.2); MAGNESIUM 2.2 mg/dL (1.5-2.7); POTASSIUM 4.5 mmol/L (3.5-5.1)
--- NOTE | 2018-11-17 08:19 | EKG Report ---
Test Performed on : 11/17/2018 06:57:25 AM Test Reason : cp Blood Pressure : / mmHG Vent. Rate : 081 BPM Atrial Rate : 081 BPM P-R Int : 168 ms QRS Dur : 076 ms QT Int : 416 ms P-R-T Axes : 072 063 056 degrees QTc Int : 483 ms Sinus rhythm. Prolonged QT Abnormal ECG When compared with ECG of 16-NOV-2018 21:31, (Unconfirmed) QT has lengthened Confirmed by Daysi PEREIRA, Adeel Fuentes ([id number]) on 11/17/2018 9:14:55 AM
[2018-11-17] MEDS ORDERED: ASPIRIN EC PO SCH (09:00)
[2018-11-17] MEDS ORDERED: ARICEPT PO SCH (09:00)
--- NOTE | 2018-11-17 09:32 | Diag Imaging Result Doc PS360 ---
EXAM: CHEST-1 VIEW INDICATION: chest pain TECHNIQUE: One view COMPARISON: 10/01/2018 FINDINGS: There is evidence of prior granulomatous disease, stable. The lungs are grossly clear. There is no discrete pleural fluid collection or pneumothorax. The cardiomediastinal silhouette and central vasculature are grossly unremarkable. IMPRESSION: No evidence of acute pathology by plain radiograph. Electronically signed by John Patton 11/17/2018 9:30 AM
[2018-11-17 14:31] VITALS: BP 128/44
--- NOTE | 2018-11-17 15:30 | CARDIOLOGY CONSULTATION ---
DATE: 11/17/2018 REASON FOR CONSULTATION: Cardiology was consulted for chest pain. HISTORY OF PRESENT ILLNESS: Patient is a 78-year-old lady, who had history of mild dementia, recent seizure disorder, peripheral vascular disease with 65% carotid stenosis, hypertension, was in the rehab facility. She was recently discharged from [facility] to rehab facility for seizure workup. At home she was having breakfast when she complained of having had chest discomfort. She was also feeling very cold. She describes the chest pain as pressure- like sensation. As far as the seizure disorder was concerned, the patient had a fall. Also, she had been off her seizure medications as well. She went to [facility] for around 2 weeks, and today was the first day from rehab at home. Electrocardiogram revealed normal sinus rhythm. There was no ST-T changes to suggest ischemia or infarction. She was subsequently admitted. PAST MEDICAL HISTORY: 1. Dementia. 2. Seizure disorder. 3. Peripheral vascular disease. 4. Gastroesophageal reflux disease. 5. History of TIA. 6. Hyperlipidemia. 7. Hypertension. 8. Right mastectomy. 9. Hysterectomy. SOCIAL HISTORY: Patient lives with her daughter. ALLERGIES: She is allergic to penicillin, Sudafed, Histex, sulfonamide antibiotics. HOME MEDICATIONS: Her medications include: 1. Plavix 75 mg a day. 2. Atorvastatin 40. 3. Enteric-coated aspirin 81. 4. Aricept 10. 5. Levothyroxine 88. 6. Omeprazole 20. 7. Phenytoin 100 mg p.o. t.i.d. 8. Lisinopril 5 mg a day. 9. Celexa 20 mg a day. 10. Symbicort inhalers. PHYSICAL EXAMINATION: Vital Signs: Blood pressure was 128/44. Cardiovascular System: Normal jugular venous pressure. There no thyromegaly. No carotid bruit. First and second heart sounds were heard. There was no S3 gallop. Respiratory System: Normal air entry. There are no crepitations or rhonchi. Abdomen: Soft, nontender. There was no guarding or rigidity. Bowel sounds were heard. Central nervous system: Alert, was moving all 4 extremities. Extremities: Examination of extremities revealed no pedal edema. HEENT: Atraumatic, normocephalic. Pupils were reacting to light. ASSESSMENT AND PLAN: 1. Ms. Olena Brown Armendariz is a 78-year-old lady with history of seizure disorders, dementia, peripheral vascular disease, hypertension, hyperlipidemia, gastroesophageal reflux disease, transient ischemic attack admitted with chest pain. She has been ruled out for myocardial infarction by cardiac enzymes. 2. Recent echocardiogram was unremarkable. 3. Sodium 139, potassium 4.5, BUN 12, creatinine of 1.0. Hematology: WBC 10.46, hemoglobin 12.6, hematocrit 38, platelet count of 329. RECOMMENDATIONS: 1. We will set her up for a Lexiscan Cardiolite stress test as an outpatient on Monday. She can go home and continue all her medications pertaining to her hypertension. 2. She has had seizure disorder. Continue with her phenytoin. 3. Hypothyroidism. Continue with her Synthroid. She also has a diagnosis of dementia and has had allergies for which she is on montelukast and Flonase as well. I have not made any other changes. Thank you for the consult. cc: Andrew Blakely MD
[2018-11-17] MEDS ORDERED: LIPITOR PO SCH (21:00)
[2018-11-17] MEDS ORDERED: PLAVIX PO SCH (21:00)
--- NOTE | 2018-11-17 22:52 | DISCHARGE SUMMARY ---
ADMISSION DATE: 11/17/2018 DISCHARGE DATE: 11/17/2018 DISCHARGE DIAGNOSES: 1. Chest pain. 2. Seizure disorder. 3. Hypothyroidism. 4. Dementia. 5. Hypertension. 6. Hyperlipidemia. PROCEDURES PERFORMED: Chest x-ray dated 11/26/2018 impression no evidence of acute pathology by plain radiograph . CONSULT: Cardiology Department. HOSPITAL COURSE: A 78-year-old female with a past medical history of mild dementia, recent seizure disorders, hypertension, hyperlipidemia, GERD and TIA, she was found to have a 65% carotid stenosis as well, she presented and was admitted on 11/17/2018 due to chest pain that lasted around 30 minutes substernal associated with some shortness of breath and was radiated a little bit to the left side of the chest, apparently she felt very cold and that was pressure- like. She did not take any aspirin or nitroglycerin. She came into the emergency department to be evaluated and she was apparently recently discharged from [facility] to have her seizures workup. The laboratory at this moment is grossly normal. Patient's chest pain has subsided. EKG shows sinus rhythm. She was evaluated by Cardiology Department who recommended to discharge this patient home and doing a stress test as an outpatient, Dr. Blakely has recommended also to continue with her home medications, he will follow this patient up in 4 weeks. PHYSICAL EXAMINATION: Vital signs: Temperature 98.1 degrees, pulse 86, respiratory rate 18, blood pressure 128/44, oxygen saturation 96 on 2 L of nasal cannula. HEENT: Head normocephalic, no trauma, PERRLA. Neck: Supple. No JVD. No masses. Central trachea. Chest: Clear to auscultate. Lungs: Clear to auscultation. No wheezing, no rales. Abdomen: Protuberant, nontender, nondistended. Positive bowel sounds. Extremities: No edema, no clubbing, no cyanosis. Neurologic: This patient at the moment of my physical exam she was alert, she was oriented x3, maybe some intermittent mild confusion. LABORATORY: Sodium 139, potassium 4.5, chloride 99, bicarbonate 29, BUN 12, creatinine 1, glucose 121, calcium 9.2, magnesium 2.2. Troponins negative x3. Triglycerides 241, cholesterol 178, LDL 115, HDL 53, lipase 55. DISCHARGE MEDICATIONS: Basically she will continue with her home medications which are acetaminophen 650 mg p.o. at bedtime, albuterol sulfate as needed, aspirin 81 mg p.o. daily, Lipitor 40 mg p.o. at bedtime, baclofen 20 mg p.o. 4 times a day as needed, Symbicort inhaler b.i.d., Celexa 20 mg p.o. daily, Plavix 75 mg p.o. at bedtime, donepezil 1 tablet p.o. daily, Flonase 2 spray inhaler inhaled daily, Vimpat 100 mg p.o. b.i.d., Synthroid 88 mcg p.o. daily, lisinopril 5 mg p.o. daily, loratadine 10 mg p.o. daily, melatonin 5 mg p.o. at bedtime, Namenda 28 mg p.o. daily, 50 mg p.o. daily, montelukast 1 tablet p.o. daily, multivitamin tablets daily, phenytoin 100 mg p.o. t.i.d., prednisone acetate 1 drop ophthalmic as directed and trazodone 1 tablet p.o. at bedtime. TIME SPENT: 25 minutes. This patient will need to go to for a stress test this Monday in 2 days 11/19/2018. Also she will follow up with Dr. Blakely in 4 weeks, she will need to call for an appointment. cc: Eyad Acevedo MD MTDD
== END 2018-11-17 17:34 | disposition home or self-care (01) ==
LOC: SUPCPDRO → ED 21:20 → INTOOBSV 11-17 01:10 → 3N 11-17 01:10 → SUATTDRO 11-17 01:10
PROVIDERS: ATTEND Internal Medicine

== ENCOUNTER 2019-02-14 17:05 | Inpatient (IN) ==
--- NOTE | 2019-02-14 17:52 | Diag Imaging Result Doc PS360 ---
EXAM: CT HEAD/C-SPINE W/O CONTRAST INDICATION: fall with head injury TECHNIQUE: This exam was performed using automated exposure control, adjustment of mA or kV according to patient size, and/or use of iterative reconstruction technique. COMPARISON: CT head dated 02/05/2019 FINDINGS: Head: There is suggestion of mild white matter microangiopathy, stable. There is no definite acute infarct given the limited sensitivity of CT versus MRI. There is no discrete intracranial mass, mass effect, or intracranial hemorrhage. The right frontal scalp hematoma seen on the previous study has decreased in size. Surrounding soft tissues and bony structures are essentially unremarkable, otherwise. The calvaria is intact. C-spine: There is moderate to advanced degenerative disc disease and somewhat milder facet arthropathy throughout the cervical spine. This is probably most significant at C4-5 where there is at least moderate central stenosis. Otherwise, there is no discrete fracture, subluxation, or intrinsic osseous lesion. The surrounding soft tissues are essentially unremarkable. IMPRESSION: 1.Stable mild chronic white matter changes. No evidence of acute intracranial pathology. 2.Advanced multilevel degenerative arthropathy but no evidence of fracture or other definite acute C-spine injury. Electronically signed by John Patton 02/14/2019 5:50 PM
--- NOTE | 2019-02-14 17:53 | Diag Imaging Result Doc PS360 ---
EXAM: CHEST-PORTABLE INDICATION: fall with head injury TECHNIQUE: One view COMPARISON: 02/05/2019 FINDINGS: The lungs are grossly clear. There is no discrete pleural fluid collection or pneumothorax. The cardiomediastinal silhouette and central vasculature are grossly unremarkable. IMPRESSION: No evidence of acute pathology by plain radiograph. Electronically signed by John Patton 02/14/2019 5:50 PM
[2019-02-14 19:09] LABS: BASO# 0.02 X1000 (0.0-0.2); BASO% 0.2 % (0.0-0.8); EOS# 0.16 X1000 (0.0-0.7); EOS% 1.9 % (0.0-10.0); HEMOGLOBIN 11.6 g/dL (12.0-16.0); IMM GRAN# 0.04 X1000 (0.0-0.04); IMM GRAN% 0.5 % (0.0-0.5); LYMPH# 1.62 X1000 (1.2-3.4); LYMPH% 19.2 % (20.5-51.1); MCH 27.5 PG (27-31); MCHC 32.2 g/dL (33-37); MCV 85.3 FL (81-99); NEUT# 5.49 X1000 (1.4-6.5); NEUT% 65.2 % (42.2-75.2); PLT 275 X1000 (130-400); RBC 4.22 XMIL (4.2-5.4); RDW 15.2 % (11.5-14.5); WBC 8.43 X1000 (4.8-10.8)
[2019-02-14 19:12] LABS: PROTIME 13.3 Seconds (11.0-16.0)
--- NOTE | 2019-02-14 19:19 | PROVIDER DOCUMENTATION ---
HPI-Head Injury - General Chief Complaint: Fall Stated Complaint: Fall Time Seen by Provider: 02/14/19 17:27 Source: patient, family Allergies/Adverse Reactions: Patient Allergies Allergy/AdvReac Type Severity Reaction Status Date / Time Penicillins Allergy Unknown Verified 02/14/19 17:59 prednisone Allergy Unknown Verified 02/14/19 17:59 pseudoephedrine Allergy Unknown Verified 02/14/19 17:59 Sulfa (Sulfonamide Allergy Unknown Verified 02/14/19 17:59 Antibiotics) histex Allergy Unknown Uncoded 10/24/18 11:46 Home Medications: Home Medication List Medication Instructions Recorded Confirmed Last Taken Type Albuterol Sulfate [Proair Hfa] 2 puff INHALATION BID 10/01/18 02/15/19 09/30/18 History Baclofen 10 mg PO BID PRN 10/01/18 02/05/19 09/30/18 History Budesonide/Formoterol Fumarate 1 dose INH BID 10/01/18 02/15/19 11/16/18 09:00 History [Symbicort 80-4.5 Mcg Inhaler] Citalopram [Celexa] 40 mg PO DAILY 10/01/18 02/15/19 11/16/18 09:00 History LISINOpril [Prinivil] 5 mg PO DAILY 10/01/18 02/15/19 11/16/18 09:00 History Levothyroxine [Synthroid] 88 microgm PO DAILY 10/01/18 02/15/19 11/16/18 06:00 History Loratadine [Claritin] 10 mg PO DAILY 10/01/18 02/15/19 11/16/18 09:00 History Memantine HCl [Namenda Xr] 28 mg PO DAILY 10/01/18 02/15/19 11/16/18 09:00 History Mirabegron [Myrbetriq] 50 mg PO DAILY 10/01/18 02/15/19 11/16/18 09:00 History ATORVAstatin [Lipitor] 40 mg PO QHS tab 10/03/18 02/15/19 11/15/18 21:00 Rx Aspirin EC 81 mg PO DAILY tab 10/03/18 02/15/19 11/16/18 09:00 Rx Clopidogrel [Plavix] 75 mg PO QHS 10/24/18 02/15/19 11/15/18 21:00 History Trazodone HCl 1 tab PO QHS 10/24/18 02/15/19 11/15/18 21:00 History Acetaminophen 650 mg PO HS PRN 11/17/18 02/15/19 11/15/18 21:00 History Lacosamide [Vimpat] 150 mg PO BID 11/17/18 02/15/19 11/16/18 09:00 History Phenytoin [Dilantin] 100 mg PO TID 11/17/18 02/15/19 11/16/18 09:00 History Calcium Carbonate 1,200 mg PO DAILY 02/05/19 02/15/19 Unknown History - History of Present Illness-Head Injury Nature of Presenting Problem: Patient with h/o Mild Dementia brought by EMS for fall today at her assisted living facility. she reports being off balance while in the bathroom as she was ambulating without her walker and bumped her head against a wall and without a fall to the ground. Denies any LOC or any other associated injuries as she did not fall to the ground. Daughter states that she has had repeat falls recently. last episode was about a week ago and had a neg CT head. Head Injury Location: reports: other (central scalp) Other injuries associated with incident:: reports: head Quality of Pain: reports: aching Onset/Duration: reports: 4-6 hours ago Method of Injury: reports: fell Any recent trauma/injury?: reports: to head Loss of Consciousness: no loss of consciousness Modifying Factors: improves with: other (lower extremity weakness) Injury Associated Symptoms: reports: headaches Similar Symptoms Previously?: Yes Recently seen or treated by another doctor?: Yes Review of Systems - Adult - REVIEW OF SYSTEMS - ADULT Constitutional: reports: no symptoms reported Eyes: reports: no symptoms reported Ears, Nose, Mouth & Throat: reports: no symptoms reported Cardiovascular: reports: no symptoms reported Respiratory: reports: no symptoms reported Gastrointestinal: reports: no symptoms reported Genitourinary: reports: urinary retention, other (suprapibic pain, not relating to fall) Musculoskeletal: reports: no symptoms reported Integumentary: reports: no symptoms reported Neurological: reports: see HPI Psychiatric: reports: no symptoms reported Endocrine: reports: no symptoms reported Hematologic/Lymphatic: reports: no symptoms reported Allergic/Immunologic: reports: no symptoms reported All Other Systems: Reviewed and Negative Past History - Adult - PAST MEDICAL HISTORY-ADULT Review of Records: reports: Medications Reviewed, Social history reviewed & non- contributory. Major Childhood Illnesses: reports: denies history Cardiovascular: reports: denies history Respiratory: reports: denies history Gastrointestinal: reports: denies history Obstetrical/Gynecological: reports: denies history Genitourinary: reports: denies history Musculoskeletal: reports: denies history Neurological: reports: denies history Endocrine/Immune: reports: denies history Other Conditions: reports: denies history - IMMUNIZATION STATUS Childhood Immunizations: See Nurse Assessment Flu Vaccine: See Nurse Assessment - FAMILY HISTORY Family History: reviewed, not pertinent - SOCIAL HISTORY Smoking: denies Substance Use: none/never Alcohol Use Frequency: never Living Situation: care facility Physical Exam- Neurological - Physical Exam-Neuro General Appearance: appears well, alert, mild distress (due to suprapubic pain) Eye Exam: bilateral eye: PERRL, EOMI HENMT: normocephalic/atraumatic, moist mucous membranes Head Injury: swelling Neck: full range of motion, supple Respiratory: chest non-tender, lungs clear, normal breath sounds Cardiovascular: regular rate, rhythm, no edema Abdominal Exam: tenderness (auprapubic and mildly distended) Extremity: normal range of motion, non-tender 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 studies 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 Exam: PERRL Motor/Sensory: no sensory deficit Neurologic: biblical studies professor II-XII nml as tested Integumentary: ecchymosis (aging, noted on the right lower eyelid with R frontal hematoma from previous fall, A central scalp swelling noted as wtih mild blood but no active bleeding) Psych/Mental Status: oriented x 3 - Glascow Coma Scale Best Eye Response: (4) open spontaneously Best Verbal Response: (5) oriented Best Motor Response: (6) obeys commands Progress - PLAN OF CARE/RESULTS Progress/Plan/Lab Results: Laboratory Results - last 24 hr 02/14/19 00:40 Blood Type Confirm O POSITIVE Orders Category Date Time Status Admit - [facility] Routine AdmDCTranf 02/14/19 23:46 Active Activity - Strict Bedrest ORDERED Care 02/14/19 23:52 Active Saline Loc NOW Care 02/14/19 17:28 Completed Vital Signs Order Q 4-HR ASSESS Care 02/14/19 23:52 Active CHEST-PORTABLE [RAD] Stat Exams 02/14/19 17:[address] HEAD/C-SPINE W/O CONTRAST [CT] Stat Exams 02/14/19 17:30 Completed CBC WITH ELECTRONIC DIFF [HEME] Stat Lab 02/14/19 18:30 Completed COMPREHENSIVE METABOLIC PANEL [CHEM] Stat Lab 02/14/19 18:30 Completed PROTIME WITH INR [COAG] Stat Lab 02/14/19 18:30 Completed TYPE & SCREEN [BBK] Stat Lab 02/14/19 18:30 Completed URINALYSIS W/POSS RFLX CULT [URINALYSIS] Stat Lab 02/14/19 20:52 Completed URINE CULTURE [RM] Routine Lab 02/14/19 20:52 Results ATORVAstatin [Lipitor] Med 02/15/19 21:00 Active 40 mg PO QHS Acetaminophen [Tylenol] Med 02/15/19 21:00 Active 650 mg PO HS Acetaminophen [Tylenol] Med 02/14/19 19:23 Discontinued 650 mg PO NOW ONE Albuterol 2.5MG/Ipratrop 0.5MG [Duoneb (A & A)] Med 02/14/19 23:53 Active 3 ml INH Q2H PRN PRN Albuterol 2.5MG/Ipratrop 0.5MG [Duoneb (A & A)] Med 02/15/19 03:30 Active 3 ml INH RTQ4H Baclofen [Lioresal] Med 02/14/19 23:58 Discontinued 20 mg PO 4XDAY PRN PRN Citalopram [Celexa] Med 02/15/19 09:00 Active 40 mg PO DAILY Clopidogrel [Plavix] Med 02/15/19 21:00 Active 75 mg PO QHS Divalproex [Depakote Sprinkle] Med 02/15/19 09:00 Active 125 mg PO DAILY Lacosamide [Vimpat] Med 02/15/19 09:00 Active 100 mg PO BID Levothyroxine [Synthroid] Med 02/15/19 07:00 Active 88 microgm PO DAILY@0700 Loratadine [Claritin] Med 02/15/19 09:00 Active 10 mg PO DAILY Memantine Xr [Namenda Xr] Med 02/15/19 09:00 Active 28 mg PO DAILY Mirabegron E.r. [Myrbetriq E.r] Med 02/15/19 09:00 Active 50 mg PO DAILY Phenytoin [Dilantin] Med 02/15/19 09:00 Active 100 mg PO TID Trazodone [Desyrel] Med 02/15/19 21:00 Discontinued 50 mg PO QHS Aerosol Treatments Routine Oth 02/14/19 23:53 Completed Aerosol Treatments Stat Oth 02/14/19 23:53 Completed PT [Physical Therapy Eval/Treatment] [OM.PT] Routine Ther 02/14/19 23:56 Active Transfer/Admit Order [TRANSFER] Routine Transfer 02/14/19 23:[address] head is negative. Relatives are concerned about her lower extremity weakness and her refusal with PT in the assisted living facility. They report that the facility os concerned about this. They will prefer patient to have an in patient rehab Result Diagrams: 02/14/19 18:30 02/14/19 18:30 - XRAY 1 XRAY Study: Chest ( EXAM: CHEST-PORTABLE INDICATION: fall with head injury TECHNIQUE: One view COMPARISON: 02/05/2019 FINDINGS: The lungs are grossly clear. There is no discrete pleural fluid collection or pneumothorax. The cardiomediastinal silhouette and central vasculature are grossly unremarkable. IMPRESSION: No evidence of acute pathology by plain radiograph. Electronically signed by John Patton 02/14/2019 5:50 PM) - CT/MRI 1 CT Study: Cervical Spine ( EXAM: CT HEAD/C-SPINE W/O CONTRAST INDICATION: fall with head injury TECHNIQUE: This exam was performed using automated exposure control, adjustment of mA or kV according to patient size, and/or use of iterative reconstruction technique. COMPARISON: CT head dated 02/05/2019 FINDINGS: Head: There is suggestion of mild white matter microangiopathy, stable. There is no definite acute infarct given the limited sensitivity of CT versus MRI. There is no discrete intracranial mass, mass effect, or intracranial hemorrhage. The right frontal scalp hematoma seen on the previous study has decreased in size. Surrounding soft tissues and bony structures are essentially unremarkable, otherwise. The calvaria is intact. C-spine: There is moderate to advanced degenerative disc disease and somewhat milder facet arthropathy throughout the cervical spine. This is probably most significant at C4-5 where there is at least moderate central stenosis. Otherwise, there is no discrete fracture, subluxation, or intrinsic osseous lesion. The surrounding soft tissues are essentially unremarkable. IMPRESSION: 1.Stable mild chronic white matter changes. No evidence of acute intracranial pathology. 2.Advanced multilevel degenerative arthropathy but no evidence of fracture or other definite acute C- spine injury. Electronically signed by John Patton 02/14/2019 5:50 PM 02/14/19 1620), Head Departure - Departure Date of Disposition Decision: 02/14/19 Time of Disposition Decision: 23:16 DIAGNOSIS: Debility, UTI (urinary tract infection) Head injury Qualifiers: Encounter type: subsequent encounter Qualified Code(s): S09.90XD - Unspecified injury of head, subsequent encounter Disposition: ADMITTED INPATIENT 09 Certified Medical Emergency: Emergent Condition: Stable - Critical Care Note This patient required my direct & personal management of CC.: No Attestation - Physician/ LENA Attestation Patient care was provided by Advanced Practice Provider:: No The physician spent face to face time with patient:: Yes Advanced Practice Provider documentation review:: Supervising physician onsite and consulted in the evaluation and care of this patient. The physician did have a face to face encounter with the patient.
[2019-02-14] MEDS ORDERED: TYLENOL PO ONE (19:23)
[2019-02-14 19:27] LABS: ALB/GLOB RATIO 1.7; ALBUMIN 3.8 g/dL (3.5-5.0); CALCIUM 8.7 mg/dL (8.8-10.2); CREATININE 0.9 mg/dL (0.5-0.9); POTASSIUM 3.3 mmol/L (3.5-5.1); TOTAL BILIRUBIN 0.25 mg/dL (0.20-1.00)
[2019-02-14 20:59] LABS: URINE SOURCE CATH
[2019-02-14 21:04] LABS: BILIRUBIN URINE NEGATIVE (NEGATIVE); BLOOD URINE NEGATIVE (NEGATIVE); COLOR YELLOW; GLUCOSE URINE NEGATIVE (NEGATIVE); KETONE URINE NEGATIVE (NEGATIVE); LEUKOCYTES URINE LARGE (NEGATIVE); NITRITE URINE POSITIVE (NEGATIVE); PH URINE 6.5; PROTEIN URINE NEGATIVE (NEGATIVE); SP GRAVITY URINE 1.006; TURBIDITY URINE HAZY (CLEAR); UR EPITHELIAL CELLS <10 /HPF (<10); URINE BACTERIA 2+ /HPF; URINE RBC <10 /HPF (<10); URINE WBC TNTC /HPF (<10); UROBILINOGEN URINE NORMAL (NORMAL)
[2019-02-14] MEDS ORDERED: DUONEB (A & A) INH PRN (23:53)
[2019-02-14] MEDS ORDERED: LIORESAL PO PRN (23:58)
[2019-02-15] MEDS: DUONEB (A & A) INH SCH ×6 (06:12→23:30)
[2019-02-15] MEDS: SYNTHROID PO SCH (06:28)
[2019-02-15] MEDS: NAMENDA XR PO SCH (10:57)
[2019-02-15] MEDS: DILANTIN PO SCH ×3 (10:57→16:20)
[2019-02-15] MEDS: MYRBETRIQ E.R. PO SCH (10:58)
[2019-02-15] MEDS: CLARITIN PO SCH (10:58)
[2019-02-15] MEDS: VIMPAT PO SCH (10:58)
[2019-02-15] MEDS: CELEXA PO SCH (10:58)
[2019-02-15] MEDS: DEPAKOTE SPRINKLE PO SCH (10:58)
[2019-02-15] MEDS: LEVAQUIN PO SCH (13:35)
[2019-02-15 14:01] LABS: PHENYTOIN 7.9 ug/mL (10-20); VALPROIC ACID 12.2 ug/mL (50-100)
[2019-02-15] MEDS: TYLENOL PO PRN (15:11)
--- NOTE | 2019-02-15 19:46 | HISTORY AND PHYSICAL ---
CHIEF COMPLAINT.: Recent fall. HISTORY OF PRESENT ILLNESS: Marcello Hyatt is a 78-year-old female, who has a history of hypothyroidism, dementia, hypertension, hyperlipidemia, gastroesophageal reflux disease as well as previous TIA in the past, and she presented to the hospital after she sustained a fall. The patient's forehead hit the floor, and she now has a hematoma in the region of the forehead. The patient denies any loss of consciousness. She denies any pain at this time. The patient did have a CT scan of the head and cervical spine done, and no acute findings noted. The patient has now been admitted to floor for further management. PAST MEDICAL HISTORY: Remarkable for hypertension, hyperlipidemia, hypothyroidism, dementia, gastroesophageal reflux disease, carotid artery stenosis. PAST SURGICAL HISTORY: She has had a right mastectomy as well as hysterectomy. SOCIAL HISTORY: No history of cigarette smoking, alcohol or drug use. FAMILY HISTORY: Positive for hypertension. ALLERGIES: She is allergic to penicillin, prednisone, Sudafed, Histex, sulfa antibiotics. MEDICATIONS: Include ProAir 4 times a day p.r.n., Baclofen 2 mg p.o. 4 times a day p.r.n., Symbicort 80/4.5 one puff twice a day, Celexa 40 mg p.o. daily, Lisinopril 40 mg p.o. daily, levothyroxine 80 mcg p.o. daily, loratadine 10 mg p.o. daily, memantine 28 mg p.o. daily, Myrbetriq 50 mg p.o. daily, atorvastatin 40 mg p.o. daily, aspirin 81 mg daily, Plavix 75 mg p.o. daily at bedtime, trazodone 1 tab p.o. at bedtime, acetaminophen 650 mg p.o. at bedtime, Vimpat 100 mg p.o. twice a day, phenytoin 100 mg p.o. 3 times a day, acetaminophen 500 mg p.o. 4 times a day, calcium carbonate 1200 mg p.o. daily, Depakote Sprinkles 120 mg p.o. daily. REVIEW OF SYSTEMS: Constitutional: No fever. Central nervous system: No headaches. No dizziness. Eyes: No blurred vision. Ears, nose, and throat: She does have some sinus issues. Cardiovascular: No chest pain. Respiratory: Has cough. Gastrointestinal: No nausea, vomiting, diarrhea. Genitourinary: No dysuria. Dermatology: No skin lesions. Hematology: No bleeding problems. Musculoskeletal: No joint pains. Psychiatric: No anxiety or depression. Endocrinology: She has thyroid disease but no diabetes. PHYSICAL EXAMINATION: VITAL SIGNS: As follows: Temperature is 98.2 degrees, pulse 76, respiratory rate 16, blood pressure 167/66, O2 saturation 95%. HEENT: Atraumatic, normocephalic. She is anicteric. Extraocular movements intact. No oral lesions. NECK: No lymphadenopathy or thyromegaly. CARDIOVASCULAR: S1, S2. RESPIRATORY SYSTEM: Has evidence of good air entry bilaterally. ABDOMEN: Soft, nontender. No masses felt. EXTREMITIES: No evidence of edema. CENTRAL NERVOUS SYSTEM: No obvious focal deficit. LABORATORY DATA: WBC is 8.45, hematocrit is 36 with a platelet count of 275,000. INR is 1.02. Sodium is 137, potassium 3.3, chloride 94, bicarb 31, BUN is 4, creatinine 0.9. UA positive for nitrites, large amount of leukocytes and also numerous WBCs. IMAGING: Chest x-ray. No evidence of acute pathology noted. CT scan of the head and C-spine shows stable mild chronic white matter changes. No evidence of acute intracranial pathology. There is advanced multilevel degenerative arthropathy with no evidence of fracture or definite acute C-spine injury. ASSESSMENT AND PLAN: 1. Head injury with frontal hematoma. I expect the hematoma to resolve over time. We will continue to monitor the patient's neurological status. 2. History of fall. Recommend PT as well as OT. 3. Urinary tract infection. Initiate antibiotics, check urine as well as blood cultures. 4. Hypothyroidism. Continue levothyroxine. 5. Dementia. Supportive care. Continue memantine. 6. History of seizure disorder. Continue Vimpat, phenytoin as well as the Depakote. Follow up on levels. Patient will need to be on seizure precaution. 7.Hyperlipidemia. Continue lipid-lowering agent (atorvastatin). 8.History of cerebrovascular accident. Continue aspirin as well as Plavix and statin. 9. Deep vein thrombosis prophylaxis. Sequential compression devices. 10. Gastrointestinal prophylaxis. Proton pump inhibitor. DISPOSITION: The patient will need placement. cc: Antwon Stern MD [facility]
[2019-02-15] MEDS: LIPITOR PO SCH (20:15)
[2019-02-15] MEDS: TYLENOL PO SCH (20:15)
[2019-02-15] MEDS: PLAVIX PO SCH (20:15)
[2019-02-15] MEDS ORDERED: DESYREL PO SCH (21:00)
--- NOTE | 2019-02-15 21:56 | PROGRESS NOTE ---
DATE: 02/15/2019 INTERVAL HISTORY: Patient still with slight headache, but otherwise no complaints. Afebrile. No acute events. Patient states she had significant dysuria on admission, but this is much improved. REVIEW OF SYSTEMS: Twelve point review of systems negative except as per interval history. LABS: Phenytoin 7.9, valproic acid 12.2. VITALS: T-max 99.1 degrees, pulse 70, respirations 18, blood pressure 142/75, O2 saturation 95% on room air. PHYSICAL EXAMINATION: General: No acute distress. Vitals: As above. HEENT: Normocephalic. Right cheek bruise. Small right frontal scalp hematoma. Cardiovascular: Regular rate and rhythm. No rubs or gallops. Pulmonary: Clear to auscultation bilaterally. Abdomen: Soft, nontender, nondistended. Bowel sounds positive. Extremities: Peripheral pulses intact. No clubbing or cyanosis. Neurologic: Cranial nerves grossly intact. Mild global weakness, but no focal deficits. Psychiatric: Awake, alert, oriented x3. Slightly flat affect. Skin: Bruises as above. No other new rashes or lesions. ASSESSMENT AND PLAN: 1. Frequent falls. The patient has had numerous falls. No dizziness or syncope, however. Some bruises, but no major injury thus far. Discussed with family. They would like for her to go to rehab. Will have Physical Therapy see her and attempt to arrange that. Will hold home Myrbetriq, trazodone, and baclofen as polypharmacy may have been contributing to her falls. 2. Urinary tract infection. Patient with dysuria and urinalysis suggestive of urinary tract infection. Patient on antibiotics with Levaquin, which we will continue pending urine sensitivities. May have been contributing to her falls. 3. Hypothyroidism. Continue home Synthroid. 4. Situational depression. Continue home psych medications. 5. Hyperlipidemia. Continue home statin. 6. Hypertension. Blood pressure pretty reasonable right now off her home medications. If it becomes significantly elevated, we will restart her home lisinopril. 7. Disposition. We will get Physical Therapy to work with her and see how she does, and depending on that, we will try to get her into rehab if possible.
[2019-02-16] MEDS: DUONEB (A & A) INH SCH ×5 (03:54→19:01)
[2019-02-16] MEDS: SYNTHROID PO SCH ×2 (05:47→06:03)
[2019-02-16] MEDS: PROTONIX PO SCH ×2 (05:47→06:03)
[2019-02-16] MEDS: LEVAQUIN PO SCH (09:54)
[2019-02-16] MEDS: MYRBETRIQ E.R. PO SCH (09:54)
[2019-02-16] MEDS: NAMENDA XR PO SCH (09:54)
[2019-02-16] MEDS: DEPAKOTE SPRINKLE PO SCH (09:54)
[2019-02-16] MEDS: VIMPAT PO SCH ×3 (09:54→21:24)
[2019-02-16] MEDS: CLARITIN PO SCH (09:54)
[2019-02-16] MEDS: CELEXA PO SCH (09:54)
[2019-02-16] MEDS: DILANTIN PO SCH ×3 (09:54→17:44)
[2019-02-16] MEDS: D5 1/2 NS + KCL 20 MEQ 1,000 ML IV SCH (16:06)
[2019-02-16] MEDS: LIPITOR PO SCH (21:23)
[2019-02-16] MEDS: TYLENOL PO SCH (21:23)
[2019-02-16] MEDS: PLAVIX PO SCH (21:23)
--- NOTE | 2019-02-17 02:55 | PROGRESS NOTE ---
DATE: 02/16/2019 SUBJECTIVE: This morning Ms. Armendariz referred to be doing a whole lot better. She was actually sitting up in a chair at the time of the encounter. OBJECTIVE: Vital signs: Blood pressure is 133/61, pulse of 79, respirations 17, temperature is 98.8 degrees. General: Ms. Fernando is a 78-year-old female, she was sitting up in a chair, no distress. HEENT: Mucosa is slightly dry. Anicteric. Acyanotic. Neck: Supple. Chest: Good air entry bilateral. There was no crepitations, no rhonchi. Cardiovascular: Regular rate and rhythm. Gastrointestinal: Abdomen is soft, nontender. Bowel sounds present. Extremities: No pedal edema. 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 There is no focal deficit. Ms Armendariz, however, shows evidence of memory lapses. LABORATORY DATA: None for today. ASSESSMENT: 1. Frequent falls. 2. Gram-negative jamila urinary tract infection. We are still pending the ID and sensitivity. 3. Hypothyroidism. Will continue with Synthroid. 4. Situational depression. 5. Hypertension/dyslipidemia. 6. Clinical volume depletion. Patient has been started on fluids. 7. Normocytic anemia. We will check the patient's iron studies to make sure there is not any underlying iron deficiency. 8. We will also check a vitamin D level and supplement it if it is low. 9. 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 10. Advanced multilevel degenerative arthropathy of the cervical spine noted on imaging studies. cc: Ben Staley MD
[2019-02-17] MEDS: DUONEB (A & A) INH SCH ×5 (03:39→19:12)
[2019-02-17] MEDS: PROTONIX PO SCH (06:47)
[2019-02-17] MEDS: SYNTHROID PO SCH (06:47)
[2019-02-17] MEDS: D5 1/2 NS + KCL 20 MEQ 1,000 ML IV SCH (06:47)
[2019-02-17 07:16] LABS: HEMATOCRIT 33.5 % (37.0-47.0); HEMOGLOBIN 11.1 g/dL (12.0-16.0); MCH 27.7 PG (27-31); MCHC 33.1 g/dL (33-37); MCV 83.5 FL (81-99); MPV 9.2 FL (7.4-10.4); RBC 4.01 XMIL (4.2-5.4); RDW 15.3 % (11.5-14.5); WBC 6.95 X1000 (4.8-10.8)
[2019-02-17 08:08] LABS: ALBUMIN 3.5 g/dL (3.5-5.0); CALCIUM 9.2 mg/dL (8.8-10.2); POTASSIUM 3.2 mmol/L (3.5-5.1)
[2019-02-17 08:40] LABS: FERRITIN 61 ng/mL (13-150)
[2019-02-17] MEDS: DILANTIN PO SCH ×3 (08:49→17:39)
[2019-02-17] MEDS: DEPAKOTE SPRINKLE PO SCH (08:49)
[2019-02-17] MEDS: VIMPAT PO SCH ×2 (08:49→21:15)
[2019-02-17] MEDS: CELEXA PO SCH (08:50)
[2019-02-17] MEDS: CLARITIN PO SCH (08:51)
[2019-02-17] MEDS: MYRBETRIQ E.R. PO SCH (08:51)
[2019-02-17] MEDS: NAMENDA XR PO SCH (08:55)
[2019-02-17] MEDS: KEFLEX PO SCH ×2 (11:23→21:15)
[2019-02-17] MEDS: TYLENOL PO PRN (13:38)
[2019-02-17] MEDS ORDERED: VENOFER 200 MG in NS 100 ML IV STA (16:22)
--- NOTE | 2019-02-17 18:07 | PROGRESS NOTE ---
DATE: 02/17/2019 SUBJECTIVE: Today, Ms. Armendariz refers to be doing well. She was actually sitting up in a chair at the time of the encounter. She refers to be doing okay. Family members joined a little later. OBJECTIVE: Vital signs: Blood pressure is 124/49, pulse of 77, respirations 20, temperature is 98.8 degrees. General: Ms. Armendariz is a 77-year-old female. She was sitting up in a chair in no distress. HEENT: Mucosa is pink and moist. Anicteric. Acyanotic. Neck: Supple. Chest: Good air entry bilaterally. There was no crepitations. No rhonchi. Cardiovascular: Regular rate and rhythm. There was no murmurs, no rubs, no gallops. GI: Abdomen soft, nontender. Bowel sounds present. Extremities: No pedal edema. Distal pulses present. 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 She did not seem to have any focal deficit. Ms. Armendariz was evaluated today by Physical Therapy; however, she declined wanting to do any therapy today. It looks like it was the same thing yesterday. She declined wanting to do any therapy. LABORATORY DATA: Hemoglobin is 11.1 with MCV of 83.5. Chemistry is also reviewed. Potassium is at 3.2. Iron studies shows a ferritin level of 61. Folate is also low at 5.4. Vitamin B12 is okay. Vitamin D level is okay. The patient's microbiology data shows that the urine culture was E coli, which is sensitive to the cephalosporins, but is resistant to levofloxacin. ASSESSMENT: 1. Frequent falls. The patient is being evaluated by Physical Therapy. However, she seems to have declined on 2 occasions, yesterday and today. She was sitting in a chair by the way at the time of the encounter. 2. Escherichia coli urinary tract infection. The patient has been switched to p.o. Keflex to complete 5 more days. 3. Hypothyroidism. We will continue with the Synthroid. 4. Hypertension and dyslipidemia. 5. Clinical volume depletion, improved. 6. Normocytic anemia with underlying iron deficiency and folate deficiency. We will continue to replace. 7. Dementia. Most likely Alzheimer's with vascular. 8. 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 Patient does not seem to have any myelopathy or radiculopathic symptoms at this point. 9. Iron and folate deficiency. We will replace this. PLAN: In general, I think Ms. Armendariz is doing well. Escherichia coli has been identified as the pathogen for causing her urinary tract infection, which we have transitioned her antibiotics to oral. We will also replace all her minerals and electrolyte abnormality (iron and folic acid) and re-evaluate her in the morning for possible rehab placement. I have explained my findings and the plan with the family. About 4 of them were at bedside and they all voiced understanding. I understand Ms. Armendariz is a resident of an assisted living [facility] and since she is weaker, we will get her to rehab to improve her physical strength before she gets back. cc: Ben Staley MD
[2019-02-17] MEDS: TYLENOL PO SCH (21:14)
[2019-02-17] MEDS: LIPITOR PO SCH (21:15)
[2019-02-17] MEDS: PLAVIX PO SCH (21:15)
[2019-02-18] MEDS ORDERED: PYRIDIUM PO PRN (00:54)
[2019-02-18] MEDS: DUONEB (A & A) INH SCH ×4 (00:58→11:31)
[2019-02-18] MEDS: PROTONIX PO SCH (06:32)
[2019-02-18] MEDS: SYNTHROID PO SCH (06:32)
[2019-02-18] MEDS ORDERED: FOLIC ACID PO SCH (09:00)
[2019-02-18] MEDS ORDERED: VENOFER 200 MG in NS 100 ML IV SCH (09:00)
[2019-02-18] MEDS: KEFLEX PO SCH (09:13)
[2019-02-18] MEDS: DILANTIN PO SCH (09:14)
[2019-02-18] MEDS: MYRBETRIQ E.R. PO SCH (09:14)
[2019-02-18] MEDS: NAMENDA XR PO SCH (09:15)
[2019-02-18] MEDS: DEPAKOTE SPRINKLE PO SCH (09:15)
[2019-02-18] MEDS: CLARITIN PO SCH (09:16)
[2019-02-18] MEDS: CELEXA PO SCH (09:16)
[2019-02-18] MEDS: VIMPAT PO SCH (09:51)
[2019-02-18 11:42] VITALS: BP 137/54
--- NOTE | 2019-02-18 12:17 | DISCHARGE SUMMARY ---
ADMISSION DATE: 02/14/2019 DISCHARGE DATE: 02/18/2019 DISPOSITION: [facility]. CONSULTATIONS DURING THIS ADMISSION: None. INVASIVE PROCEDURES DONE DURING THIS ADMISSION: None. IMAGING STUDIES OF SIGNIFICANCE: 1. A chest x-ray on admission showed no evidence of acute pathology by plain x-ray. 2. A CT scan of the head and cervical spine without contrast showed stable mild chronic white matter changes, advanced multilevel degenerative arthropathy, but no evidence of fracture or other definite acute C-spine pathology. ADMISSION DIAGNOSES: 1. Head injury with frontal hematoma. 2. History of falls. 3. Urinary tract infection. 4. Dementia. 5. History of cerebrovascular accident. DISCHARGE DIAGNOSES: 1. Frequent falls at home. 2. Generalized weakness. 3. Escherichia coli urinary tract infection. 4. Hypothyroidism. 5. Hypertension. 6. Clinical volume depletion on admission, improved. 7. Normocytic anemia with underlying iron deficiency and folate deficiency. 8. 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 9. 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 The patient does not have any myelopathy or radiculopathic symptoms at this point. 10. Iron and folate deficiency, replaced. 11. Polypharmacy with multiple psychotropic medications, which could also account for the patient falling. The patient has been advised to follow up with her primary care to assess the need to continue being on all these medications. DISCHARGE MEDICATIONS: 1. Citalopram 40 mg p.o. daily. 2. Levothyroxine 88 mcg p.o. daily. 3. Memantine 28 mg p.o. daily. 4. Mirabegron (Myrbetriq) 50 mg p.o. every 24 hours. 5. Albuterol inhalers p.r.n. 6. Lisinopril 5 mg p.o. daily. 7. Atorvastatin 40 mg p.o. at bedtime. 8. Aspirin 81 mg p.o. daily. 9. Trazodone 50 mg p.o. at bedtime. 10. Plavix 75 mg p.o. at bedtime. 11. Vimpat 150 mg b.i.d. 12. Phenytoin 100 mg 3 times per day. 13. Cephalexin 500 p.o. every 12 hours. 14. Depakote 125 p.o. daily. 15. Iron sulfate 325 b.i.d. 16. Folic acid 1 mg p.o. daily. 17. Multivitamin. PRESENTING COMPLAINT: Falls. HISTORY OF PRESENTING COMPLAINT: Ms. Armendariz is a 78-year-old, elderly, female, who has multiple comorbidities, on a lot of medications, most of which are psychotropics; I am not quite sure the rational on all those. However, she was brought in because she has been falling multiple times at her assisted living. She did sustain some bruise to her right. She also was evaluated with imaging studies, and admitted for further medical care. HOSPITAL COURSE: Ms. Armendariz was admitted to the surgical floor. She was found to have abnormal urine, which eventually came out to be Escherichia coli, and she also refers to have been having symptoms. We think that the Escherichia coli urinary tract infection could confound to her generalized weakness, which has started just a couple days prior to her admission. Ms. Armendariz was also found to be iron and folate deficient, and were all replaced. She is on multiple psychotropic medications, which according to her, have been prescribed to her by her primary care physician. She has been advised to re-evaluate all of these medications with them, and the need to continue taking them. During the hospital course, Ms. Armendariz was evaluated by Physical Therapy. Unfortunately, on two occasions, she refused. However, this morning, her daughter tells me that her son-in-law, who is also a physical therapist, walked Ms. Armendariz yesterday in the hallway, and she did well. Ms. Armendariz this morning tells me that she has been up to use the restroom multiple times, and she does not feel any dizzy. She has not had any falls. We think that taking care of her urinary tract infection has improved on her symptoms, and also replenishing her iron with Venofer infusion has also significantly helped. She has been advised to follow up with her primary care. This morning, Ms. Armendariz refers to be doing a lot better. Her current vitals show blood pressure is 125/39, pulse of 70, respirations 18, temperature is 97.8 degrees. Physical exam, for the most part, is unremarkable. We think she is stable enough for discharge. She did not have any recent laboratory data for today. The previous ones have all been reviewed. TIME SPENT FOR DISCHARGE: 38 minutes. cc: MD Roverto Ivory MD
[2019-02-18] MEDS ORDERED: FERROUS SULFATE PO SCH (17:00)
[2019-02-19] MEDS ORDERED: THERA M PLUS PO SCH (09:00)
== END 2019-02-18 12:59 | DRG 690 ==
LOC: SUPCPDRO → ED 17:05 → SUATTDRO 02-15 00:27 → 4N 02-15 00:27
PROVIDERS: ATTEND Internal Medicine